=== PATIENT | female | born 1985 | race Hispanic/Latino ===

== ENCOUNTER 2017-09-03 11:46 | Emergency (ER) | payer OTHER ==
--- NOTE | 2017-09-03 12:42 | ED PDOC ---
HPI: Abdomen Time Seen by Provider: 09/03/17 12:40 Chief Complaint (Nursing): Abdominal Pain Chief Complaint (Provider): n History Per: Patient (32 y/o female approx 4 weeks sent from urgent care for evaluation of possible ectopic . Patient states she noted vaginal spotting 4 days ago associated with right sided crampy pain. States pain worse yesterday and noted improved today. Had one episode of vomiting this morning otherwise ate wrap prior to ED arrivl. No fevers.) Past Medical History Reviewed: Historical Data, Nursing Documentation, Vital Signs Vital Signs: Last Vital Signs Temp 98.4 F 09/03/17 11:52 Pulse 88 09/03/17 11:52 Resp 19 09/03/17 11:52 BP 149/81 09/03/17 11:52 Pulse Ox 98 09/03/17 12:42 - Medical History PMH: Asthma - Allergies Allergies/Adverse Reactions: Allergies Allergy/AdvReac Type Severity Reaction Status Date / Time amoxicillin Allergy RASH Verified 09/03/17 12:29 nut - unspecified Allergy SWELLING Verified 09/03/17 12:29 fruit Allergy SWELLING Uncoded 09/03/17 12:29 Review of Systems ROS Statement: Except As Marked, All Systems Reviewed And Found Negative Physical Exam - Reviewed Nursing Documentation Reviewed: Yes Vital Signs Reviewed: Yes - Physical Exam Appears: Positive for: Well, Non-toxic, No Acute Distress Head Exam: Positive for: ATRAUMATIC, NORMAL INSPECTION, NORMOCEPHALIC Skin: Positive for: Normal Color, Warm, DRY Eye Exam: Positive for: EOMI, Normal appearance, PERRL ENT: Positive for: Normal ENT Inspection Neck: Positive for: Normal, Painless ROM Cardiovascular/Chest: Positive for: Regular Rate, Rhythm Respiratory: Positive for: CNT, Normal Breath Sounds Gastrointestinal/Abdominal: Positive for: Normal Exam, Soft Back: Positive for: Normal Inspection Extremity: Positive for: Normal ROM Neurologic/Psych: Positive for: Alert, Oriented - Laboratory Results Result Diagrams: 09/03/17 12:54 09/03/17 12:54 Urine POC: Positive Urine dip results: Positive for: Ketones. Negative for: Leukocyte Esterase, Blood, Nitrate, Glucose, Bilirubin, Protein - ECG O2 Sat by Pulse Oximetry: 98 Disposition - Clinical Impression Clinical Impression: Vaginal bleeding in , Corpus luteum cyst - Patient ED Disposition Is Patient to be Admitted: No - Disposition Disposition: Routine/Home Disposition Time: 17:00 Condition: FAIR Additional Instructions: RETURN IN 2 DAYS FOR REPEAT BETA HCG Instructions: Ovarian Cyst (DC), Threatened Miscarriage (DC) Forms: [facility] (Armenian)
[2017-09-03 13:56] LABS: BASO % 0.4 % (0.0-2.0); EOS % 0.2 % (0.0-4.0); HEMOGLOBIN 11.9 g/dL (12.0-16.0); LYMPH # 1.3 K/uL (1.0-4.3); MEAN CELL VOLUME 93.9 fl (81.0-99.0); MEAN CORPUSCULAR HEMOGLOBIN 31.9 pg (27.0-31.0); MEAN PLATELET VOLUME 9.7 fl (7.2-11.7); MONO # 0.6 K/uL (0.0-0.8); MONO % 6.8 % (0.0-10.0); NEUT # 6.7 K/uL (1.8-7.0); NEUT % 77.6 % (50.0-75.0); RBC 3.72 Mil/uL (3.80-5.20); RED CELL DISTRIBUTION WIDTH 13.6 % (11.5-14.5); WHITE BLOOD COUNT 8.6 K/uL (4.8-10.8)
[2017-09-03 14:01] LABS: BLOOD UREA NITROGEN 10 mg/dl (7-17); CALCIUM 8.9 mg/dL (8.4-10.2); GFR AFRICAN-AMERICAN > 60; GFR NON-AFRICAN AMERICAN > 60
--- NOTE | 2017-09-03 16:42 | US ---
PROCEDURE: LIMITED ABDOMEN ULTRASOUND RIGHT LOWER QUADRANT HISTORY: evaluate appendix please COMPARISON: None TECHNIQUE: Multiple sagittal and transverse projections of the right lower quadrant abdomen been obtained using a curve sector transducer. Color Doppler ultrasound was also utilized. FINDINGS: Appendix not identified. Minimal ascites is appreciated at the right lower quadrant with debris. However, cystic changes seen the right ovary and is unclear whether this fluid may be the related to the right ovary. Nevertheless, the examination is unable to exclude appendicitis. IMPRESSION: The appendix not identified. Minimal right lower quadrant ascites is noted of uncertain origin. Appendicitis is therefore difficult to completely exclude.
--- NOTE | 2017-09-03 16:51 | US ---
HISTORY: r/o ectopic COMPARISON: None available. TECHNIQUE: Incidental ultrasound of the pelvis was performed for evaluation of this patient right lower quadrant/midline abdominal pain and positive test. FINDINGS: UTERUS: Measures uterus is anteverted measuring 7.8 x 4.1 x 6.2 cm without gestation within the endometrial cavity. Endometrial is unremarkable and measures 12.0 mm. Limited hyperechoic changes at the posterior fundus could reflect trace calcification within small fibroid with is indeterminate. Uterine myometrium is otherwise unremarkable. The cervix is unremarkable with a closed internal os. The cervix measures 4.1 cm. The left as compartments unremarkable with the left ovary measuring 2.6 x 1.1 x 2.9 cm. At the right adnexal compartment, the ovary measures 3.7 x 2.0 x 3.2 cm with a complex cystic lesion of mixed echogenicity but predominate hypoechoic measuring 2.5 x 2.7 x 1.7 cm. This may represent a corpus luteum cyst. No yolk sac or pole is clearly related. There are loops of bowel in the right adnexal compartment which appear to simulate an ectopic gestation. Some loops do not appear peristalsis however an ectopic here is not completely excluded medial to the right ovary in particular. Upon real-time ultrasonography visualization with the technologist at the ultrasound suite, it was felt that bowel loops are favored over an ectopic here. Differs diagnosis remains nonvisualized viable intrauterine gestation versus failure of gestation including potential ectopic and clinical correlation and 1 week sonographic follow-up are advised. FREE FLUID: Limited ascites seen in the pelvis which is hypoechoic but slightly heterogeneous in echotexture. OTHER FINDINGS: None. IMPRESSION: No visible IUP identified. Small bowel loops obscure right adnexal compartment with an ectopic gestation not completely excluded medial to the right ovary which likely contains a corpus luteum cyst. Differential diagnosis is viable but non-visualized IUP versus failure of gestation including ectopic gestation. Findings were discussed with Dr. Deleon with written down and read back verification at 09/03/2017 4:45 p.m.. The findings were also discussed with the patient by myself medially after termination of the examination.
[2017-09-03 17:20] VITALS: BP 133/84; PULSE 77; RESP 18; TEMP 98.7; O2SAT 100
== END 2017-09-03 17:04 | disposition home or self-care (01) ==
LOC: H.ER 11:46
DX: O46.90 Antepartum hemorrhage, unspecified, unspecified trimester (principal); N83.12 Corpus luteum cyst of left ovary

== ENCOUNTER 2017-09-05 12:31 | Emergency (ER) | payer OTHER ==
[2017-09-05 12:53] VITALS: RESP 16
--- NOTE | 2017-09-05 15:30 | ED PDOC ---
HPI: Female Pain Time Seen by Provider: 09/05/17 13:46 Chief Complaint (Nursing): Female Genitourinary Chief Complaint (Provider): Abnormal History Per: Patient History/Exam Limitations: no limitations Onset/Duration Of Symptoms: Days (three), Waxing/Waning Current Symptoms Are (Timing): Better Severity: Mild Associated Symptoms: denies: Fever, Chills, Nausea, Vomiting, Diarrhea Additional Complaint(s): Pt presents to the ED as a followup visit to one two days ago during which she was dx as with pelvic pain and mild vaginal bleeding. An US was conducted and was negative in all regards. She was instructed to return to the ED today for a followup [facility] [place]. Pt bleeding has stopped and she has only mild pressure Past Medical History Reviewed: Historical Data, Nursing Documentation, Vital Signs Vital Signs: Last Vital Signs Temp 98 F 09/05/17 12:52 Pulse 99 H 09/05/17 12:52 Resp 16 09/05/17 12:52 BP 127/70 09/05/17 12:52 Pulse Ox 100 09/05/17 12:52 - Medical History PMH: Asthma - Family History Family History: States: Unknown Family Hx - Allergies Allergies/Adverse Reactions: Allergies Allergy/AdvReac Type Severity Reaction Status Date / Time amoxicillin Allergy RASH Verified 09/03/17 12:29 nut - unspecified Allergy SWELLING Verified 09/03/17 12:29 fruit Allergy SWELLING Uncoded 09/03/17 12:29 Review of Systems Genitourinary Female: Positive for: Pelvic Pain Physical Exam - Reviewed Nursing Documentation Reviewed: Yes Vital Signs Reviewed: No - Physical Exam Appears: Positive for: Well, Non-toxic Head Exam: Positive for: ATRAUMATIC, NORMAL INSPECTION, NORMOCEPHALIC Skin: Positive for: Normal Color, Warm, Dry Cardiovascular/Chest: Positive for: Regular Rate, Rhythm Respiratory: Positive for: Normal Breath Sounds Pulses-Carotid (L): 2+ Pulses-Carotid (R): 2+ Pulses-Post. Tibialis (R): 2+ Pulses-Radial (L): 2+ Gastrointestinal/Abdominal: Positive for: Normal Exam - ECG O2 Sat by Pulse Oximetry: 100 Medical Decision Making Medical Decision Making: [facility] [place] 09/03 -- 1141 09/05 -- [address] Ruvalcaba [facility] and he instructed pt ot follow up with her OB on Thursday Disposition - Clinical Impression Clinical Impression: Abnormal 1st trimester screen - Disposition Disposition: Routine/Home Disposition Time: 15:32 Condition: STABLE Additional Instructions: Beta HCG 09/03: 1141 09/05: 1215 Follow up with your [facility] on Thursday with these results Instructions: Tests, Medications and
[2017-09-05 18:47] VITALS: BP 120/70; PULSE 70; TEMP 98.5; O2SAT 97
== END 2017-09-05 15:40 | disposition home or self-care (01) ==
LOC: H.ER 12:31
DX: J45.909 Unspecified asthma, uncomplicated (principal); Z33.1 Pregnant state, incidental